=== PATIENT | female | born 1980 | race Caucasian/White ===

== ENCOUNTER 2017-11-18 07:41 | Emergency (ER) | payer OTHER ==
[2017-11-18 08:15] VITALS: BP 107/70
--- NOTE | 2017-11-18 08:29 | UC ---
Ear Complaint HPI - HPI Summary HPI Summary: 37 yo female c/o R ear pain, progressively worse x 3 weeks. Worse at night. Wears ear mufflers at night. No fever. Hurts jaw. - History of Current Complaint Chief Complaint: UCEar Stated Complaint: EAR COMPLAINT Time Seen by Provider: 11/18/17 08:12 Hx Obtained From: Patient Hx Last Menstrual Period: 2009 Pain Intensity: 5 - Allergies/Home Medications Allergies/Adverse Reactions: Allergies Allergy/AdvReac Type Severity Reaction Status Date / Time latex Allergy Unknown Verified 11/18/17 08:04 Reaction Details Home Medications: Home Medications Folic Acid TAB* [Folvite TAB*] 1 mg PO DAILY 11/18/17 [History Confirmed ] Rx Med For Ra 1 tab PO WEEKLY 11/18/17 [History Confirmed 11/18/17] Topiramate TAB(*) [Topamax 100 mg tab] 75 mg PO BEDTIME 11/18/17 [History Confirmed 11/18/17] PMH/Surg Hx/FS Hx/Imm Hx Previously Healthy: Yes - arthritis - Surgical History Surgical History: Yes Surgery Procedure, Year, and Place: 2 c-sections. uterine ablation. 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 [facility] - Family History Known Family History: Positive: Other - positive [facility] for URI - Social History Alcohol Use: Rare Substance Use Type: None Smoking Status (MU): Heavy Every Day Tobacco Smoker Type: Cigarettes Amount Used/How Often: 1/2 pack daily Length of Time of Smoking/Using Tobacco: age 17 yo Household Exposure Type: Cigarettes - Immunization History Most Recent Influenza Vaccination: No Review of Systems Constitutional: Negative Skin: Negative Eyes: Negative ENT: Other - see hpi Respiratory: Negative Cardiovascular: Negative Gastrointestinal: Negative Genitourinary: Negative Motor: Negative Neurovascular: Negative Musculoskeletal: Negative Neurological: Negative Psychological: Negative Is Patient Immunocompromised?: No - but does take mtx All Other Systems Reviewed And Are Negative: Yes Physical Exam Triage Information Reviewed: Yes Appearance: Well-Nourished - looks tired, nad. Vital Signs: Initial Vital Signs Temp 98.8 F 11/18/17 08:10 Pulse 59 11/18/17 08:10 Resp 20 11/18/17 08:10 BP 107/70 11/18/17 08:10 Pulse Ox 100 02/09/18 08:10 Vital Signs Reviewed: Yes Eye Exam: Normal ENT: Positive: Other - R TM red, rtx'd. TM as visible intact. R EAC + red, swollen, mild dry detritus noted. T TM rai, rtx'd. EAC ok. No sign trismus perse, but hurts to open jaw fully Neck exam: Normal Neck: Positive: Supple Respiratory Exam: Normal - no tachypnea, no dysnpea, normal rate Cardiovascular Exam: Normal - normal rate, nondiaphortic Abdominal Exam: Normal - no c/o Musculoskeletal Exam: Normal Neurological Exam: Normal - grossly nonfocal Psychological Exam: Normal - conversing easily and appropriately Ear Complaint Course/Dx - Course Course Of Treatment: Reviewed clinical findings, tx plan, coa with pt. Denies hx addiction, nor household addiction. Rx Tylenol #3. Cipro po and ciprodex. D/w pt need for f/u pcp toward end of abx. questions as posed answered to the best of my ability. - Differential Dx/Diagnosis Provider Diagnoses: Otitis externa Discharge - Discharge Plan Condition: Stable Disposition: HOME Prescriptions: Acetaminop/Codeine 30 MG TAB* [Tylenol/Codeine 30 MG TAB*] 1 - 2 tab PO Q6H PRN #16 tab MDD 8 PRN Reason: Pain Ciproflox/Dexameth OTIC.SUSP* [Ciprodex Otic*] 3 drop .SEE ORDER TID #1 bottle Ciprofloxacin TAB* [Cipro 500 MG TAB*] 500 mg PO BID #20 tab Patient Education Materials: Otitis Externa (ED) Referrals: Gm Lovett MD [Primary Care Provider] - Additional Instructions: follow up with your primary care physician for recheck around the time your antibiotic is complete seek medical attention for worse or new problems in the meantime
== END 2017-11-18 08:42 | disposition home or self-care (01) ==
LOC: UCCORT 07:41
DX: F17.210 Nicotine dependence, cigarettes, uncomplicated (principal)
CPT/HCPCS: 99212; G0463

== ENCOUNTER 2017-12-07 10:18 | Emergency (ER) | payer OTHER ==
[2017-12-07 11:30] VITALS: BP 107/66
--- NOTE | 2017-12-07 11:56 | UC ---
Respiratory Complaint HPI - HPI Summary HPI Summary: cough, congestion, sore throat, chills, achiness for about two days. - History of Current Complaint Chief Complaint: UCRespiratory Stated Complaint: FLY SYMPTOMS Time Seen by Provider: 12/07/17 11:46 Hx Obtained From: Patient Hx Last Menstrual Period: 8yrs ?: No Onset/Duration: Gradual Onset, Lasting Days Timing: Constant Severity Initially: Moderate Severity Currently: Moderate Pain Intensity: 6 Character: Cough: Nonproductive Aggravating Factors: Deep Breaths, Recumbent Position Alleviating Factors: Upright Position, Spontaneous Resolution Associated Signs And Symptoms: Positive: Fever, Chills, URI, Nasal Congestion. Negative: Calf Pain, Calf Swelling - Allergies/Home Medications Allergies/Adverse Reactions: Allergies Allergy/AdvReac Type Severity Reaction Status Date / Time latex Allergy Unknown Verified 12/07/17 11:20 Reaction Details Home Medications: Home Medications Ibuprofen TAB* [Motrin TAB* 600 MG] 600 mg PO Q4H PRN 12/07/17 [History Confirmed 12/07/17] PMH/Surg Hx/FS Hx/Imm Hx Previously Healthy: No - smoker. - Surgical History Surgical History: Yes Surgery Procedure, Year, and Place: 2 c-sections. uterine ablation. 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 [facility] - Family History Known Family History: Positive: Other - positive [facility] for URI - Social History Lives: With Family Alcohol Use: None Substance Use Type: None Smoking Status (MU): Heavy Every Day Tobacco Smoker Type: Cigarettes Amount Used/How Often: 1/2 pack daily Length of Time of Smoking/Using Tobacco: age 17 yo Household Exposure Type: Cigarettes - Immunization History Most Recent Influenza Vaccination: No Review of Systems Constitutional: Fever, Chills ENT: Sore Throat, Sinus Congestion Respiratory: Cough Musculoskeletal: Myalgia All Other Systems Reviewed And Are Negative: Yes Physical Exam Triage Information Reviewed: Yes Appearance: Well-Appearing, No Pain Distress, Well-Nourished Vital Signs: Initial Vital Signs Temp 100.1 F 12/07/17 11:22 Pulse 86 12/07/17 11:22 Resp 20 12/07/17 11:22 BP 107/66 12/07/17 11:22 Pulse Ox 99 12/07/17 11:22 Vital Signs Reviewed: Yes Eye Exam: Normal Eyes: Positive: Conjunctiva Clear ENT: Positive: Pharyngeal erythema, Nasal congestion, TMs normal, Uvula midline. Negative: Nasal drainage, Tonsillar swelling, Tonsillar exudate, Trismus, Muffled voice, Hoarse voice, Dental tenderness, Sinus tenderness Neck: Positive: Supple, Nontender, No Lymphadenopathy. Negative: Nuchal Rigidity Respiratory: Positive: Lungs clear, Normal breath sounds, No respiratory distress, No accessory muscle use. Negative: Respiratory distress, Decreased breath sounds, Accessory muscle use, Crackles, Rhonchi, Stridor, Wheezing, Expiration Cardiovascular: Positive: No Murmur, Pulses Normal, Brisk Capillary Refill Abdomen Description: Positive: No Organomegaly, Soft. Negative: Distended, Guarding Musculoskeletal: Positive: Strength Intact, ROM Intact, No Edema Neurological: Positive: Alert, Muscle Tone Normal. Negative: Fatigued Psychological: Positive: Age Appropriate Behavior, Abnormal Response To Family Skin: Negative: rashes UC Diagnostic Evaluation - Laboratory O2 Sat by Pulse Oximetry: 99 Respiratory Course/Dx - Differential Dx/Diagnosis Provider Diagnoses: influenza Discharge - Discharge Plan Condition: Good Disposition: HOME Prescriptions: Oseltamivir CAP* [Tamiflu CAP*] 75 mg PO BID #10 cap Patient Education Materials: Influenza (ED) Forms: *Work Release Referrals: Gm Lovett MD [Primary Care Provider] -
== END 2017-12-07 11:56 | disposition home or self-care (01) ==
LOC: UCCORT 10:18
DX: J11.1 Influenza due to unidentified influenza virus with other respiratory manifestations (principal); F17.210 Nicotine dependence, cigarettes, uncomplicated
CPT/HCPCS: 99212; G0463

== ENCOUNTER 2018-07-31 08:33 | Emergency (ER) | payer OTHER ==
[2018-07-31 08:43] VITALS: BP 107/72
--- NOTE | 2018-07-31 08:54 | UC ---
Abdominal Pain Female HPI - HPI Summary HPI Summary: This patient is a 38 year old F presenting to [facility] with a chief complaint of ABD pain that began 3 days ago. At that time she states she at pizza and 15 minutes later she had n/v accompanied by a 10/10 pain. The patient rates the pain 4/10 in severity currently, describes it as achy, and located around her right ribs. Symptoms aggravated by eating. Patient reports right upper back pain. Patient denies hematuria and dysuria. Ablation 8 years ago and has not had a period since. She has not had a BM in the last 4 days. Along with this she reports having 30-40 lbs of unintended weight loss in the past few months. - History of Current Complaint Chief Complaint: UCAbdominalPain Stated Complaint: ABDOMINAL COMPLAINT Hx Obtained From: Patient Hx Last Menstrual Period: 8yrs Onset/Duration: Lasting Days, Still Present Timing: Constant Severity Initially: Severe Severity Currently: Moderate Pain Intensity: 4 Pain Scale Used: 0-10 Numeric Location: Discrete At: RUQ, Discrete At: RLQ Radiates: Yes Radiates to: Back Character: Sharp Aggravating Factor(s): Food Associated Signs and Symptoms: Positive: Nausea, Vomiting. Negative: Fever Allergies/Adverse Reactions: Allergies Allergy/AdvReac Type Severity Reaction Status Date / Time latex Allergy Unknown Verified 07/31/18 08:44 Reaction Details Home Medications: Home Medications Acetaminophen 325 mg PO Q6HR 07/31/18 [History Confirmed 07/31/18] PMH/Surg Hx/FS Hx/Imm Hx - Surgical History Surgical History: Yes Surgery Procedure, Year, and Place: 2 c-sections. uterine ablation. 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 [facility] - Family History Known Family History: Positive: Other - positive [facility] for URI - Social History Alcohol Use: None Substance Use Type: None Smoking Status (MU): Heavy Every Day Tobacco Smoker Type: Cigarettes Amount Used/How Often: 1/2 pack daily Length of Time of Smoking/Using Tobacco: age 17 yo Household Exposure Type: Cigarettes - Immunization History Most Recent Influenza Vaccination: No Review of Systems Constitutional: Negative - fever Gastrointestinal: Abdominal Pain, Vomiting, Nausea, Other - constipation Genitourinary: Negative All Other Systems Reviewed And Are Negative: Yes Physical Exam - Summary Physical Exam Summary: VITAL SIGNS: Reviewed. GENERAL: Patient is a well-developed and nourished female who is lying comfortable in the stretcher. Patient is not in any acute respiratory distress. HEAD AND FACE: Normocephalic EYES: PERRLA, EOMI x 2. EARS: Hearing grossly intact. MOUTH: Oropharynx within normal limits. NECK: Supple, trachea is midline, no adenopathy, no JVD, no carotid bruit. CHEST: Symmetric, no tenderness at palpation LUNGS: Clear to auscultation bilaterally. No wheezing or crackles. CVS: Regular rate and rhythm, S1 and S2 present, no murmurs or gallops appreciated. ABDOMEN: Soft, TTP in the RUQ, no rebound. Bowel sounds are normal. No abdominal abnormal pulsations. EXTREMITIES: Full ROM in all major joints, no edema, no cyanosis or clubbing. NEURO: Alert and oriented x 3. No acute neurological deficits. Speech is normal and follows commands. SKIN: Dry and warm Triage Information Reviewed: Yes Vital Signs: Initial Vital Signs Temp 97.5 F 07/31/18 08:37 Pulse 64 07/31/18 08:37 Resp 18 07/31/18 08:37 BP 107/72 07/31/18 08:37 Pulse Ox 100 07/31/18 08:37 Vital Signs Reviewed: Yes Diagnostics - Radiology ABD US Radiology Interpretation Completed By: Radiologist - Sludge within the gallbladder. Prominent right renal pelvis. No biliary duct dilatation is noted. Dr. Knowles has reviewed this report. Abd Pain Female Course/Dx - Course Course Of Treatment: Patient is a 38-year-old female who presents to the urgent care with a chief complaint of having right upper quadrant pain and approximately 50 pounds in weight loss in the last 6 months. Patient reports that she is I will treat. If she eats she has the abdominal pain. Right upper quadrant ultrasound impression: Sludge in gallbladder. No biliary ductal dilation is noted. X-ray of the abdomen impression: No fever or obstruction noted. Since there is no significant abnormal findings I decided to send the patient to the emergency department for further workup and management. The patient declined ambulance transfer. Patient is hemodynamically stable alert and oriented 3. - Differential Dx/Diagnosis Provider Diagnoses: Abdominal pain. Weight loss Discharge - Sign-Out/Discharge Documenting (check all that apply): Patient Departure All imaging exams completed and their final reports reviewed: Yes - Discharge Plan Condition: Stable Disposition: HOME-RECOMMEND TO ED Patient Education Materials: Abdominal Pain (ED) Referrals: Gm Lovett MD [Primary Care Provider] - Additional Instructions: Patient is discharged to the emergency department for further workup and management. Patient declined ambulance transfer. - Billing Disposition and Condition Condition: STABLE Disposition: Home-Recommend to ED - Attestation Statements Document Initiated by Scribe: Yes Documenting Scribe: Elier Chavez Provider For Whom Scribe is Documenting (Include Credential): José Manuel Knowles MD Scribe Attestation: Elier Chavez , scribed for José Manuel Knowles MD on 07/31/18 at 1315. Scribe Documentation Reviewed: Yes Provider Attestation: The documentation as recorded by the Elier cadet accurately reflects the service I personally performed and the decisions made by José Manuel dorsey MD
--- NOTE | 2018-07-31 09:18 | RAD ---
Indication: Abdominal pain. Flat and upright views of the abdomen demonstrates no free air. Stool is present throughout the colon. No dilated loops of bowel are noted. Tubal ligation clips are noted. IMPRESSION: No free air or obstruction is noted.
--- NOTE | 2018-07-31 09:51 | RAD ---
Indication: Right upper quadrant pain. Real-time sonography of the right upper quadrant was performed. The liver measures 17 cm in length. No focal lesions or intrahepatic duct dilatation is noted. Sludge is noted in the gallbladder. Common duct measures 2 mm. The right kidney measures 11.2 x 3.8 x 4.3 cm. There is a prominent right renal pelvis. The pancreas head, neck and proximal body demonstrates no mass or pancreatic duct dilatation. Aorta and inferior vena cava are unremarkable. IMPRESSION: Sludge within the gallbladder. Prominent right renal pelvis. No biliary duct dilatation is noted.
== END 2018-07-31 09:46 | disposition home health service (06) ==
LOC: UCEAST 08:33
DX: R10.11 Right upper quadrant pain (principal); R63.4 Abnormal weight loss; R11.2 Nausea with vomiting, unspecified; F17.210 Nicotine dependence, cigarettes, uncomplicated; K59.00 Constipation, unspecified; Z91.040 Latex allergy status
CPT/HCPCS: 74019; 76705; 81003; 99212; G0463

== ENCOUNTER 2018-07-31 10:07 | Emergency (ER) | payer OTHER ==
[2018-07-31 10:39] LABS: ABS Basophils 0.1 10^3/ul (0-0.2); ABS Eosinophils 0.1 10^3/ul (0-0.6); ABS Lymphocytes 1.8 10^3/ul (1.0-4.8); ABS Monocytes 0.5 10^3/ul (0-0.8); ABS Neutrophils 4.8 10^3/ul (1.5-7.7); ABS Nucleated RBC 0 10^3/ul; Eosinophil % 1.3 % (0-6); Hematocrit 44 % (35-47); Hemoglobin 15.3 g/dl (12.0-16.0); Mean Corpuscular HGB Conc 35 g/dl (31-36); Mean Corpuscular Hemoglobin 33 pg (27-31); Mean Corpuscular Volume 95 fL (80-97); Mean Platelet Volume 9.1 um3 (7.4-10.4); Nucleated Red Blood Cells % 0.1; Platelet Count 246 10^3/ul (150-450); Red Blood Count 4.65 10^6/ul (4.00-5.40); Red Cell Distribution Width 13 % (10.5-15); White Blood Count 7.4 10^3/ul (3.5-10.8)
[2018-07-31 11:00] LABS: EGFR Non-African American 101.3 (>60)
[2018-07-31] MEDS ORDERED: Acetaminophen TAB* 325 MG PO ONE (11:31)
[2018-07-31] MEDS ORDERED: Famotidine TAB* 20 MG PO ONE (11:31)
[2018-07-31 11:39] LABS: Urine Appearance Clear; Urine Blood Negative (Negative); Urine Color Straw; Urine Ketones Negative (Negative); Urine Protein Negative (Negative); Urine Specific Gravity 1.004 (1.010-1.030); Urine Urobilinogen Negative (Negative)
--- NOTE | 2018-07-31 12:10 | ED ---
Abdominal Pain/Female - HPI Summary HPI Summary: Pt is a 38 y/o female who presents to the ED c/o RUQ pain. She was sent here from the where she had an US and XR. Pt states shes been having the pain for a few months, but 3 days ago was made worse after eating pizza. She also c/ o chills, N/V, and constipation. Pt denies any dark BMs or urinary symptoms, but is unsure if shes had a fever because shes been taking Ibuprofen and Tylenol. The pain is described as dull and achy. She no longer has menstrual periods. - History of Current Complaint Chief Complaint: EDAbdPain Stated Complaint: ABD PAIN Time Seen by Provider: 07/31/18 11:20 Hx Obtained From: Patient Hx Last Menstrual Period: 8yrs Onset/Duration: Gradual Onset, Lasting Weeks - 2 months, Still Present Timing: Constant Severity Currently: Severe Pain Intensity: 10 Pain Scale Used: 0-10 Numeric Location: Discrete At: RUQ Radiates: No Character: Dull, Other: - Achy Aggravating Factor(s): Food Associated Signs and Symptoms: Positive: Constipation, Nausea, Vomiting. Negative: Fever, Blood in Stool, Urinary Symptoms Allergies/Adverse Reactions: Allergies Allergy/AdvReac Type Severity Reaction Status Date / Time latex Allergy Unknown Verified 07/31/18 08:44 Reaction Details PMH/Surg Hx/FS Hx/Imm Hx Endocrine/Hematology History: Denies: Hx Diabetes, Hx Thyroid Disease Cardiovascular History: Denies: Hx Hypertension, Hx Pacemaker/ICD Respiratory History: Denies: Hx Asthma, Hx Chronic Obstructive Pulmonary Disease (COPD) GI History: Denies: Hx Ulcer History: Denies: Hx Renal Disease Sensory History: Denies: Hx Hearing Aid Psychiatric History: Denies: Hx Panic Disorder - Surgical History Surgery Procedure, Year, and Place: 2 c-sections. uterine ablation. 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 [facility] - Immunization History Immunizations Up to Date: Yes Infectious Disease History: No Infectious Disease History: Denies: Hx Clostridium Difficile, Hx Hepatitis, Hx Human Immunodeficiency Virus (HIV), Hx of Known/Suspected MRSA, Hx Shingles, Hx Tuberculosis, Traveled Outside the [place] in Last 30 Days - Family History Known Family History: Positive: Other - positive [facility] for URI - Social History Alcohol Use: None Hx Substance Use: No Substance Use Type: Reports: None Hx Tobacco Use: Yes Smoking Status (MU): Heavy Every Day Tobacco Smoker Type: Cigarettes Amount Used/How Often: 1/2 pack daily Length of Time of Smoking/Using Tobacco: age 17 yo Review of Systems Positive: Chills. Negative: Fever Positive: Abdominal Pain, Vomiting, Nausea, Other - Constipation, NEGATIVE: dark stool Genitourinary: Negative All Other Systems Reviewed And Are Negative: Yes Physical Exam - Summary Physical Exam Summary: Appearance: Well appearing, no pain distress Skin: warm, dry, reflects adequate perfusion Head/face: normal Eyes: EOMI, NICKOLAS ENT: mucous membranes moist Neck: supple, non-tender Respiratory: CTA, breath sounds present Cardiovascular: RRR, pulses symmetrical Abdomen: soft, mild-moderate RUQ tenderness, no RLQ tenderness, no rebound or guarding, negative Venetie sign Bowel Sounds: present Musculoskeletal: normal, strength/ROM intact Neuro: normal, sensory motor intact, A&Ox3 Triage Information Reviewed: Yes Vital Signs On Initial Exam: Initial Vitals Temp Pulse Resp BP Pulse Ox 97.4 F 70 16 126/71 100 07/31/18 10:10 07/31/18 10:10 07/31/18 10:10 07/31/18 10:10 07/31/18 10:10 Vital Signs Reviewed: Yes Diagnostics - Vital Signs Vital Signs Temp Pulse Resp BP Pulse Ox 07/31/18 11:26 60 18 118/70 100 07/31/18 11:24 64 100 07/31/18 10:10 97.4 F 70 16 126/71 100 - Laboratory Lab Results: Lab Results 07/31/18 07/31/18 07/31/18 Range/Units 10:30 10:30 10:30 WBC 7.4 (3.5-10.8) 10^3/ul RBC 4.65 (4.00-5.40) 10^6/ul Hgb 15.3 (12.0-16.0) g/dl Hct 44 (35-47) % MCV 95 (80-97) fL MCH 33 H (27-31) pg MCHC 35 (31-36) g/dl RDW 13 (10.5-15) % Plt Count 246 (150-450) 10^3/ul MPV 9.1 (7.4-10.4) um3 Neut % (Auto) 65.7 (38-83) % Lymph % (Auto) 25.0 (25-47) % Graham % (Auto) 7.2 H (0-7) % Eos % (Auto) 1.3 (0-6) % Baso % (Auto) 0.8 (0-2) % Absolute Neuts (auto) 4.8 (1.5-7.7) 10^3/ul Absolute Lymphs (auto) 1.8 (1.0-4.8) 10^3/ul Absolute Monos (auto) 0.5 (0-0.8) 10^3/ul Absolute Eos (auto) 0.1 (0-0.6) 10^3/ul Absolute Basos (auto) 0.1 (0-0.2) 10^3/ul Absolute Nucleated RBC 0 10^3/ul Nucleated RBC % 0.1 Sodium 140 (135-145) mmol/L Potassium 4.5 (3.5-5.0) mmol/L Chloride 106 (101-111) mmol/L Carbon Dioxide 28 (22-32) mmol/L Anion Gap 6 (2-11) mmol/L BUN 11 (6-24) mg/dL Creatinine 0.66 (0.51-0.95) mg/dL Est GFR ( Amer) 122.6 (>60) Est GFR (Non-Af Amer) 101.3 (>60) BUN/Creatinine Ratio 16.7 (8-20) Glucose 96 (70-100) mg/dL Lactic Acid 0.9 (0.5-2.0) mmol/L Calcium 9.4 (8.6-10.3) mg/dL Total Bilirubin 0.30 (0.2-1.0) mg/dL AST 12 L (13-39) U/L ALT 8 (7-52) U/L Alkaline Phosphatase 64 (34-104) U/L C-Reactive Protein < 1.00 (<8.01) mg/L Total Protein 6.6 (6.4-8.9) g/dL Albumin 4.5 (3.2-5.2) g/dL Globulin 2.1 (2-4) g/dL Albumin/Globulin Ratio 2.1 (1-3) Lipase 17 (11.0-82.0) U/L Beta HCG, Quant < 0.60 mIU/mL Urine Color Urine Appearance Urine pH (5-9) Ur Specific [place] (1.010-1.030) Urine Protein (Negative) Urine Ketones (Negative) Urine Blood (Negative) Urine Nitrate (Negative) Urine Bilirubin (Negative) Urine Urobilinogen (Negative) Ur Leukocyte Esterase (Negative) Urine Glucose (Negative) 07/31/18 Range/Units 11:28 WBC (3.5-10.8) 10^3/ul RBC (4.00-5.40) 10^6/ul Hgb (12.0-16.0) g/dl Hct (35-47) % MCV (80-97) fL MCH (27-31) pg MCHC (31-36) g/dl RDW (10.5-15) % Plt Count (150-450) 10^3/ul MPV (7.4-10.4) um3 Neut % (Auto) (38-83) % Lymph % (Auto) (25-47) % Graham % (Auto) (0-7) % Eos % (Auto) (0-6) % Baso % (Auto) (0-2) % Absolute Neuts (auto) (1.5-7.7) 10^3/ul Absolute Lymphs (auto) (1.0-4.8) 10^3/ul Absolute Monos (auto) (0-0.8) 10^3/ul Absolute Eos (auto) (0-0.6) 10^3/ul Absolute Basos (auto) (0-0.2) 10^3/ul Absolute Nucleated RBC 10^3/ul Nucleated RBC % Sodium (135-145) mmol/L Potassium (3.5-5.0) mmol/L Chloride (101-111) mmol/L Carbon Dioxide (22-32) mmol/L Anion Gap (2-11) mmol/L BUN (6-24) mg/dL Creatinine (0.51-0.95) mg/dL Est GFR ( Amer) (>60) Est GFR (Non-Af Amer) (>60) BUN/Creatinine Ratio (8-20) Glucose (70-100) mg/dL Lactic Acid (0.5-2.0) mmol/L Calcium (8.6-10.3) mg/dL Total Bilirubin (0.2-1.0) mg/dL AST (13-39) U/L ALT (7-52) U/L Alkaline Phosphatase (34-104) U/L C-Reactive Protein (<8.01) mg/L Total Protein (6.4-8.9) g/dL Albumin (3.2-5.2) g/dL Globulin (2-4) g/dL Albumin/Globulin Ratio (1-3) Lipase (11.0-82.0) U/L Beta HCG, Quant mIU/mL Urine Color Straw Urine Appearance Clear Urine pH 5.0 (5-9) Ur Specific [place] 1.004 L (1.010-1.030) Urine Protein Negative (Negative) Urine Ketones Negative (Negative) Urine Blood Negative (Negative) Urine Nitrate Negative (Negative) Urine Bilirubin Negative (Negative) Urine Urobilinogen Negative (Negative) Ur Leukocyte Esterase Negative (Negative) Urine Glucose Negative (Negative) Result Diagrams: 07/31/18 10:30 07/31/18 10:30 Lab Statement: Any lab studies that have been ordered have been reviewed, and results considered in the medical decision making process. Abdominal Pain Fem Course/Dx - Course Course Of Treatment: Patient was sludge in the gallbladder but otherwise normal ultrasound. LFTs are nonelevated. She has minimal discomfort in that area at present. Treated here with some relief or GI meds. Had been taking a lot of ibuprofen. Discussed with her family medicine office who will see her and schedule her for HIDA scan. - Diagnoses Differential Diagnosis: Positive: Gall Bladder Disease, Irritable Bowel Syndrome , Other - Gastritis Provider Diagnoses: RUQ abdominal pain - Provider Notifications Discussed Care Of Patient With: Gm Lovett Time Discussed With Above Provider: 11:55 Instructed by Provider To: Other - Have pt call as needed. Discharge - Sign-Out/Discharge Documenting (check all that apply): Patient Departure - Discharge - Discharge Plan Condition: Improved Disposition: HOME Prescriptions: Famotidine TAB* [Pepcid 20 MG TAB*] 20 mg PO BID #30 tab Sucralfate [Carafate] 1 gm PO Q6H #40 tablet Patient Education Materials: Acute Abdominal Pain (ED) Forms: *Work Release Referrals: Gm Lovett MD [Primary Care Provider] - Additional Instructions: Try to cut back on ibuprofen, this may be making her belly more tender. Tylenol as needed. Low-fat/no fat diet until HIDA scan performed. Follow up with primary care physician as soon as possible call on leaving the ER. We have discussed with them of ordering a HIDA scan. Return with fever, increased pain, worse, new symptoms or other concerns. - Billing Disposition and Condition Condition: IMPROVED Disposition: Home - Attestation Statements Document Initiated by Henrique: Yes Documenting Scribe: Monica Logan Provider For Whom Henrique is Documenting (Include Credential): Alvaro Mosley MD Scribe Attestation: Monica Chavez, scribed for Alvaro Mosley MD on 07/31/18 at 1529. Scribe Documentation Reviewed: Yes Provider Attestation: The documentation as recorded by the Monica cadet accurately reflects the service I personally performed and the decisions made by me, Alvaro Mosley MD
[2018-07-31 12:28] VITALS: BP 117/65
== END 2018-07-31 12:27 | disposition home or self-care (01) ==
LOC: ED 10:07
DX: R10.11 Right upper quadrant pain (principal); K59.00 Constipation, unspecified; R11.2 Nausea with vomiting, unspecified; F17.210 Nicotine dependence, cigarettes, uncomplicated
CPT/HCPCS: 36415; 80053; 81003; 83605; 83690; 84702; 85025; 86140; 99282; A9270-GY

== ENCOUNTER 2018-12-08 17:54 | Emergency (ER) | payer BC, OTHER ==
[2018-12-08 18:08] VITALS: BP 131/82
--- NOTE | 2018-12-08 18:30 | UC ---
Back Pain HPI - HPI Summary HPI Summary: 38-year-old woman comes in with a chief complaint of thoracic back pain and bilateral shoulder pain that started at work while lifting on December 05, 2018. Pain primarily is in the upper back and also the right shoulder. It's worse with lifting twisting turning bending. Also hurts when she turns her neck. States the muscles feel tight. Yesterday at work but very 2018 the pain got worse while lifting. No weakness or numbness. No shortness of breath. - History of Current Complaint Chief Complaint: UCUpperExtremity Stated Complaint: BACK INJURY Time Seen by Provider: 12/08/18 18:13 Hx Last Menstrual Period: ABLATION Pain Intensity: 6 - Allergies/Home Medications Allergies/Adverse Reactions: Allergies Allergy/AdvReac Type Severity Reaction Status Date / Time latex Allergy Unknown Verified 12/08/18 18:09 Reaction Details Home Medications: Home Medications Acetaminophen [Extra Strength Non-Aspirin] 1,000 mg PO PRN 12/08/18 [History] Ibuprofen TAB* [Advil TAB*] 600 mg PO PRN 12/08/18 [History] Naproxen Sodium [Aleve] 2 tab PO PRN 12/08/18 [History] PMH/Surg Hx/FS Hx/Imm Hx Previously Healthy: Yes GI/ History: Gastroesophageal Reflux - Surgical History Surgical History: Yes Surgery Procedure, Year, and Place: 2 c-sections. uterine ablation. 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 LASIK EYE. 09/07/18- [facility] - Family History Known Family History: Positive: Other - positive [facility] for URI - Social History Alcohol Use: None Substance Use Type: None Smoking Status (MU): Current Every Day Smoker Type: Cigarettes Amount Used/How Often: 1/2 pack daily Length of Time of Smoking/Using Tobacco: age 17 yo Household Exposure Type: Cigarettes - Immunization History Most Recent Influenza Vaccination: No Review of Systems All Other Systems Reviewed And Are Negative: Yes Constitutional: Positive: Negative Skin: Positive: Negative Eyes: Positive: Negative ENT: Positive: Negative Respiratory: Positive: Negative Cardiovascular: Positive: Chest Pain Gastrointestinal: Positive: Negative Motor: Positive: Decreased ROM - SHOULDERS AND NECK SECONDARY TO PAIN Neurovascular: Positive: Negative Musculoskeletal: Positive: Other: - SEE HPI Neurological: Positive: Negative Psychological: Positive: Negative Is Patient Immunocompromised?: No Physical Exam Triage Information Reviewed: Yes Appearance: Well-Appearing, Well-Nourished, Pain Distress - MILD WITH ROM Vital Signs: Initial Vital Signs Temp 98.3 F 12/08/18 18:03 Pulse 74 12/08/18 18:03 Resp 16 12/08/18 18:03 BP 131/82 12/08/18 18:03 Pulse Ox 100 12/08/18 18:03 Vital Signs Reviewed: Yes Eye Exam: Normal Eyes: Positive: Conjunctiva Clear Neck: Positive: Other: - DECREASED ROM SECONDARY TO PAIN. TENDER RT LATERAL NECK Respiratory: Positive: Lungs clear, Normal breath sounds, No respiratory distress, Other: - TENDER TO PALPATION B/L UPPER THORACIC BACK. MUSCLES ARE TIGHT. Cardiovascular: Positive: RRR Musculoskeletal: Positive: Other: - The muscles of the upper back are tender to palpation and her tight on examination. Range of motion of the shoulders is limited secondary to pain. The shoulder joints themselves are not tender to palpation. No sensation deficit strength is 5 out of 5. Range of motion of the neck is also decreased secondary to pain. Neurological Exam: Normal Neurological: Positive: Alert, Muscle Tone Normal Psychological Exam: Normal Psychological: Positive: Normal Response To Family, Age Appropriate Behavior Skin Exam: Normal Back Pain Course/Dx - Course Course Of Treatment: Patient will continue the nonsteroidal anti- inflammatories. I also wrote a prescription for Flexeril and hydrocodone. The plan is to use Flexeril if that helps sufficiently we'll stop at that level. Otherwise she can take and hydrocodone if needed. She has taken hydrocodone in the past and tolerated it well. Plan is to have her follow up with occupational medicine and also referred to physical therapy. Reevaluate sooner if worse or any questions or concerns. - Differential Dx/Diagnosis Provider Diagnosis: Acute thoracic back pain, Shoulder pain, bilateral Discharge - Sign-Out/Discharge Documenting (check all that apply): Patient Departure All imaging exams completed and their final reports reviewed: No Studies - Discharge Plan Condition: Stable Disposition: HOME Prescriptions: Cyclobenzaprine TAB* [Flexeril 10 MG TAB*] 10 mg PO TID PRN #15 tab MDD 3 PRN Reason: Pain HYDROcodone/ACETAMIN 5-325 MG* [[place] 5-325 TAB*] 1 tab PO Q4H PRN #20 tab MDD 6 PRN Reason: Pain Patient Education Materials: Shoulder Sprain (ED), Thoracic Back Strain (ED) Forms: *Work Release Referrals: Gm Lovett MD [Primary Care Provider] - Clinton Guerrero MD [Medical Doctor] - Additional Instructions: FOLLOW UP WITH OCCUPATIONAL MEDICINE, DR GUERRERO, PHYSICAL THERAPY AND YOUR DOCTOR. GET RECHECKED FOR ANY WORSENING OF YOUR CONDITION; WEAKNESS, NUMBNESS, PAIN, SHORTNESS OF BREATH, YOU FEEL ILL OR QUESTIONS OR CONCERNS. - Billing Disposition and Condition Condition: STABLE Disposition: Home
== END 2018-12-08 18:35 | disposition home or self-care (01) ==
LOC: UCEAST 17:54
DX: M54.6 Pain in thoracic spine (principal); M25.511 Pain in right shoulder; M25.512 Pain in left shoulder; F17.210 Nicotine dependence, cigarettes, uncomplicated; Z91.040 Latex allergy status
CPT/HCPCS: 99212; G0463

== ENCOUNTER 2019-02-24 18:29 | Emergency (ER) | payer BC, OTHER ==
--- OUTSIDE RECORDS SUMMARY | 2019-02-24 18:33 | XMS REPORT | Continuity of Care Document ---
:1980 External Reference #:[id number] Author Name Marlen Elliott Care Team Providers Name Role Phone Gm Lovett MD Primary Care Physician Unavailable Payers Date Identification Numbers Payment Provider Subscriber Expires: 2016 Policy Number: [id number] Blue [facility] Irene Colmenares PayID: [id number] [address] [address] [place] [address] Policy Number: [id number] [facility] [id number] [address] [address] [place] [address] Effective: 2018 Policy Number: [id number] [place] Irene Colmenares Onset: 2018 Group Number: fax [phone] [address] [address] PayID: [id number] [place] [address] Advance Directives Description No Information Available Problems Active Problems Provider Date Alopecia Ryann Avendano MD Onset: 04/05/2018 Medication overuse headache Ryann Avendano MD Onset: 12/13/2016 Chronic intractable migraine without aura Ryann Avendano MD Onset: 12/13/2016 Family History Date Family Member(s) Observation Comments General Cancer General Rheumatoid Arthritis Mother Migraine First Daughter Migraine Social History Type Date Description Comments Sex Unknown Lives With Spouse Occupation Currently Working ETOH Use Denies alcohol use Tobacco Use Start: Unknown Patient is a current smoker, smokes every day Smoking Status Reviewed: 02/13/19 Patient is a current smoker, smokes every day Exercise Type/Frequency Does not exercise Allergies, Adverse Reactions, Alerts Active Allergies Reaction Severity Comments Date NKDA 12/13/2016 Latex 02/13/2019 Medications Active Medications SIG Qnty Indications Ordering Provider Date Aimovig inject once a 1ml G43.719 Stan Sandhu, 11/10/2018 70mg/ml month, sq GRP# M.D. Solution Auto-Inject [id number] PCN# CN Id# [id number] [facility]# [id number] Diclofenac Sodium 1 as needed for 30tabs G43.719 Ryann Avendano MD 2017 50mg migraine. avoid Tablets DR using more than 2x/week Metoclopramide HCL 1 tablet as needed 30tabs G43.719 Ryann Avendano MD 01/10 5mg for Tablets migraine/nausea up to three times per day. Folic Acid 1 tab a day Unknown 1mg Tablets Arava 1 by mouth every Unknown 10mg Tablets day Linzess 1 by mouth every Unknown 145mcg Capsules day Ibuprofen 200 400-600mg every 6 Unknown 200mg hours as needed Tablets for pain. Tylenol 8 Hour 1 by mouth twice a Unknown 650mg day Tablets ER History Medications Naratriptan HCL 1 twice a day as 12tabs G43.719 Ryann Avendano MD 2017 - 2.5mg needed for 11/09/2018 Tablets headache max 2 days a week Medrol Take as directed 21units G43.719 Ryann Avendano MD 12/13/2016 - 4mg TBPK 04/11/2017 Topiramate take 1 tabs by 60tabs G43.719 Ryann Aevndano MD 12/13/2016 - 25mg mouth every 11/09/2008 Tablets night.. Duloxetine HCL 1 po qd Unknown - 60mg 01/09/[address] Sanchez Alprazolam take 1 tablet by Unknown - 0.25mg mouth three 01/09/2018 Tablets times a day maximum daily dose of 3 Nexium 24HR 1 by mouth daily Unknown - 20mg 11/09/[address] Methotrexate 10mg weekly Unknown - 2.5mg 11/09/2018 Tablets Immunizations Description No Information Available Vital Signs Date Vital Result Comment 02/13/2019 8:45am Height 62.5 inches 5'2.50" Weight 112.00 lb BP Systolic 128 mmHg BP Diastolic 66 mmHg Respiratory Rate 18 /min Body Temperature 97.4 F Pain Level 4 BMI (Body Mass Index) 20.2 kg/m2 11/10/2018 8:12am Height 62.5 inches 5'2.50" Weight 112.00 lb Heart Rate 84 /min BP Systolic Sitting 102 mmHg BP Diastolic Sitting 70 mmHg BMI (Body Mass Index) 20.2 kg/m2 04/05/2018 10:18am Height 62.5 inches 5'2.50" Weight 113.38 lb Heart Rate 68 /min BP Systolic 102 mmHg BP Diastolic 72 mmHg BMI (Body Mass Index) 20.4 kg/m2 01/10/2018 3:57pm Height 62.5 inches 5'2.50" Weight 123.00 lb Heart Rate 62 /min BP Systolic 98 mmHg BP Diastolic 58 mmHg BMI (Body Mass Index) 22.1 kg/m2 04/11/2017 3:56pm Height 62.5 inches 5'2.50" Weight 153.00 lb Heart Rate 66 /min BP Systolic Sitting 110 mmHg BP Diastolic Sitting 70 mmHg Respiratory Rate 14 /min BMI (Body Mass Index) 27.5 kg/m2 12/13/2016 12:57pm Height 62.5 inches 5'2.50" Weight 150.00 lb Heart Rate 67 /min BP Systolic Sitting 122 mmHg BP Diastolic Sitting 76 mmHg Respiratory Rate 17 /min BMI (Body Mass Index) 27.0 kg/m2 Results Description No Information Available Procedures Date Code Description Status 02/13/2019 90473 Inject/Drain Joint/Bursa Major W/O US Completed Encounters Type Date Location Provider Dx Diagnosis Office Visit 12/26/2018 [facility] Clinton Calin, S13.4xxD Sprain of 3:31p Health ligaments of cervical spine, subsequent encounter M75.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 w/o aura, intractable, w/o stat migr Office 04/05/2018 [facility] Ryann Avendano MD G43.719 Chronic migraine Visit 10:30a Clinic w/o aura, intractable, w/o stat migr L65.9 Nonscarring hair loss, unspecified Office Visit 01/10/2018 [facility] Ryann G43.719 Chronic migraine 3:30p Amelia Avendano MD w/o aura, intractable, w/o stat migr L65.9 Nonscarring hair loss, unspecified Office Visit 04/11/2017 4:00p [place] [facility] Ryanncortez Avendano G43.719 Chronic migraine [facility] w/o aura, intractable, w/o stat migr Office Visit 12/13/2016 1:00p [place] [facility] Ryann Aevndano G43.719 Chronic migraine [facility] w/o aura, intractable, w/o stat migr G44.40 Drug-induced headache, NEC, not intractable Plan of Treatment Future Appointment(s):03/27/2019 8:45 am - [facility] am - Stan Sandhu M.D. at [place] [facility]02/13/2019 - Adelfo Gallagher, MDM25.511 Pain in right vlhxezogB71.101A Unspecified injury of muscle, fascia and tendon of long headNew Therapy:Physical TherapyFollow up:Follow up: 6-8 mjisjC43.41 Impingement syndrome of right jwwxsolcK66.211 Secondary osteoarthritis, right shoulder
--- OUTSIDE RECORDS SUMMARY | 2019-02-24 18:33 | XMS REPORT | Continuity of Care Document ---
:1980 External Reference #:[id number] Author Name Marlen Elliott Care Team Providers Name Role Phone Gm Lovett MD Primary Care Physician Unavailable Payers Date Identification Numbers Payment Provider Subscriber Expires: 2016 Policy Number: [id number] Blue [facility] P[facility] Irene Colmenares PayID: [id number] [address] [address] [place] [address] Policy Number: [id number] [facility] PayID: [id number] [address] [address] [place] [address] Effective: 2018 Policy Number: [id number] [place] Irene Colmenares Onset: 2018 Group Number: fax [phone] [address] [address] PayID: [id number] [place] [address] Advance Directives Description No Information Available Problems [...] 70mg/ml month, sq GRP# M.D. Solution Auto-Inject [id number] PCN# CN Id# [id number] [facility]# [id number] Diclofenac Sodium 1 as needed for 30tabs [...] take 1 tabs by 60tabs G43.719 Ryann Avendano MD 12/13/2016 - 25mg mouth every 11/09/2008 [...] Available Procedures Date Code Description Status 02/13/2019 17197 Inject/Drain Joint/Bursa Major W/O US Completed Encounters Type Date Location Provider Dx Diagnosis Office Visit 02/13/2019 Orthopedic Adelfo Gallagher MD M25.511 Pain in right 9:00a [facility] S46.101A Unsp injury of musc/fasc/tend long hd bicep, right arm, init M75.41 Impingement syndrome of right shoulder M19.211 Secondary osteoarthritis, right shoulder Office Visit 12/26/2018 [facility] S13.4xxD Sprain of 3:31p [facility] MD Calin ligaments of cervical spine, subsequent encounter M75.31 Calcific tendinitis of right shoulder M54.12 Radiculopathy, cervical region Z04.2 Encounter for exam and observation following work accident [facility] Visit 8:00a [facility] Sandhu M.D. w/o aura, intractable, w/o stat migr Office 04/05/2018 [facility] Ryann Avendano MD G43.719 Chronic migraine Visit 10:30a Clinic w/o aura, intractable, w/o stat migr L65.9 Nonscarring hair loss, unspecified Office Visit 01/10/2018 [facility] Ryann G43.719 Chronic migraine 3:30p Clinic MD Juan Alberto w/o aura, intractable, w/o stat migr L65.9 Nonscarring hair loss, unspecified Office Visit 04/11/2017 4:00p [place] [facility] Ryanncortez Avendano G43.719 Chronic migraine [facility] Of [facility] w/o aura, intractable, w/o stat migr Office Visit 12/13/2016 1:00p [facility] Ryann Avendano G43.719 Chronic migraine [facility] w/o aura, intractable, w/o stat migr G44.40 Drug-induced headache, NEC, not intractable Plan of Treatment Future Appointment(s):03/27/2019 8:45 am - Adelfo Gallagher MD at [facility]02/23/2019 8:15 am - Stan Sandhu M.D. at [place] [facility]02/13/2019 - Adelfo Gallagher, MDM25.511 Pain in right pxqjwjfdT16.101A Unspecified injury of muscle, fascia and tendon of long headNew Therapy:Physical TherapyFollow up:Follow up: 6-8 djejxV57.41 Impingement syndrome of right ybduipvaZ42.211 Secondary osteoarthritis, right shoulder
--- OUTSIDE RECORDS SUMMARY | 2019-02-24 18:33 | XMS REPORT | Continuity of Care Document ---
:1980 External Reference #:[id number] Author Name Fatou Cantu Care Team Providers Name Role Phone Gm Lovett MD Primary Care Physician Unavailable Payers Date Identification Numbers Payment Provider Subscriber Expires: 2016 Policy Number: [id number] [employer] Irene Colmenares PayID: [id number] [address] [address] [place] [address] Policy Number: [id number] Blue [facility] Ppo Irene Colmenares PayID: [id number] [address] [address] [place] [address] Effective: 2018 Policy Number: [id number] [place] Irene Colmenares Onset: 2018 Group Number: fax [phone] [address] [address] PayID: [id number] [place] [address] Problems Active Problems Provider Date Alopecia Ryann Avendano MD Onset: 04/05/2018 Medication overuse headache Ryann Avendano MD Onset: 12/13/2016 Chronic intractable migraine without aura Ryann Avendano MD Onset: 12/13/2016 Family History Date Family Member(s) Observation Comments General Cancer General Rheumatoid Arthritis Mother Migraine First Daughter Migraine Social History Type Date Description Comments Sex Unknown Lives With Spouse Occupation Currently Working Hand Dominance Right-handed ETOH Use Denies alcohol use Tobacco Use Start: Unknown Patient is a current smoker, smokes every day Smoking Status Reviewed: 02/23/19 Patient is a current smoker, smokes every day Exercise Type/Frequency Does not exercise Allergies, Adverse Reactions, Alerts Active Allergies Reaction Severity Comments Date NKDA 12/13/2016 Latex 02/13/2019 Medications Active Medications SIG Qnty Indications Ordering Date Provider Aimovig 140 Dose inject 2 milliliters 12units G43.719 Stan (140mg) Victor M Sandhu 9 70mg/ml Solution subcutaneously every Auto-Inject month Diclofenac Sodium 1 as needed for 30tabs G43.719 Ryann Avendano MD migraine. avoid [address] using more than 2x/week Metoclopramide HCL 1 tablet as needed 30tabs G43.719 Ryann Avendano MD 01/10 for migraine/nausea 8 5mg Tablets up to three times per day. Folic Acid 1 tab a day Unknown 1mg 0 Tablets Arava 1 by mouth every day Unknown 10mg Tablets 0 Linzess 1 by mouth every day Unknown 145mcg 0 Capsules Ibuprofen 200 400-600mg every 6 Unknown 200mg hours as needed for 0 Tablets pain. Tylenol 8 Hour 1 by mouth twice a Unknown 650mg day 0 Tablets ER History Medications Aimovig inject once a 1ml G43.9 Stan Sandhu, 11/10/2018 - 70mg/ml month, sq GRP# M.D. 02/23/2019 Solution [id number] PCN# Auto-Inject CN Id# [id number] Bin# [id number] Naratriptan HCL 1 twice a day as 12tabs G43.719 Ryann Avendano MD 2017 - needed for 11/09/2018 2.5mg Tablets headache max 2 days a week Medrol Take as directed 21units G43.719 Ryann Avendano MD 12/13/2016 - 4mg TBPK 04/11/2017 Topiramate take 1 tabs by 60tabs G43.719 Ryann Avendano MD 12/13/2016 - 25mg mouth every 11/09/2008 Tablets night.. Duloxetine HCL 1 po qd Unknown - 60mg 01/09/[address] Sanchez Alprazolam take 1 tablet by Unknown - 0.25mg mouth three times 01/09/2018 Tablets a day maximum daily dose of 3 Nexium 24HR 1 by mouth daily Unknown - 20mg 11/09/[address] Methotrexate 10mg weekly Unknown - 2.5mg 11/09/2018 Tablets Medications Administered in Office Medication SIG Qnty Indications Ordering Provider Date Triamcinolone (Kenalog) Adelfo Gallagher MD 02/13/2019 Injection Vital Signs Date Vital Result Comment 02/23/2019 8:18am Height 62.5 inches 5'2.50" Weight 119.00 lb Heart Rate 87 /min BP Systolic Sitting 108 mmHg BP Diastolic Sitting 76 mmHg O2 % BldC Oximetry 98 % BMI (Body Mass Index) 21.4 kg/m2 02/13/2019 8:45am Height 62.5 inches 5'2.50" Weight [...] /min BMI (Body Mass Index) 27.0 kg/m2 Procedures Date Code Description Status 02/13/2019 39257 Inject/Drain Joint/Bursa Major W/O US Completed Encounters Type Date Location Provider Dx Diagnosis Office Visit 12/26/2018 [employer] Occup[employer] [place] Calin, S13.4xxD Sprain of 3:31p Health ligaments of cervical spine, subsequent encounter M75.31 Calcific tendinitis of right shoulder M54.12 Radiculopathy, cervical region Z04.2 Encounter for exam and observation following work accident Office 11/10/2018 [facility] Stan G43.719 Chronic migraine Visit 8:00a Services Of [...] hair loss, unspecified Office Visit 04/11/2017 4:00p [facility] Ryann Avendano G43.719 Chronic migraine Services [facility] w/o aura, intractable, w/o stat migr Office Visit 12/13/2016 1:00p [facility] Ryann Avendano G43.719 Chronic migraine [facility] w/o aura, intractable, w/o stat migr G44.40 Drug-induced headache, NEC, not intractable Plan of Treatment Future Appointment(s):06/29/2019 8:15 am - Stan Sandhu M.D. at [place] [facility]03/29/2019 9:15 am - [facility] - Stan Sandhu M.D.G43.719 Chronic migraine without aura, intractable, without status mNew Medication:Aimovig 140 Dose 70 mg /ml - inject 2 milliliters (140mg) subcutaneously every month
[2019-02-24 18:48] VITALS: BP 103/62
--- NOTE | 2019-02-24 19:09 | UC ---
Respiratory Complaint HPI - HPI Summary HPI Summary: 38 yo female with cough x 6 days sore throat no high fever no CP or sob occassionally coughs to the point she thinks she might vomit - History of Current Complaint Chief Complaint: UCGeneralIllness Stated Complaint: SORE THROAT Time Seen by Provider: 02/24/19 18:34 Hx Obtained From: Patient Hx Last Menstrual Period: ablation 9 years ago Onset/Duration: Sudden Onset Timing: Constant Severity Initially: Mild Severity Currently: Moderate Pain Intensity: 4 Pain Scale Used: 0-10 Numeric Character: Cough: Nonproductive Aggravating Factors: Nothing Alleviating Factors: Nothing Associated Signs And Symptoms: Positive: URI, Nasal Congestion Related History: Similar Episode/Dx as: - Bronchitis - Allergies/Home Medications Allergies/Adverse Reactions: Allergies Allergy/AdvReac Type Severity Reaction Status Date / Time latex Allergy Unknown Verified 01/16/19 11:02 Reaction Details PMH/Surg Hx/FS Hx/Imm Hx Previously Healthy: Yes - Surgical History Surgical History: Yes Surgery Procedure, Year, and Place: gallbladder out 2017. 2 c-sections. uterine ablation. 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 LASIK EYE. 09/07/18- [facility] - Family History Known Family History: Positive: Hypertension, Other - positive [facility] for URI - Social History Alcohol Use: None Substance Use Type: None Smoking Status (MU): Light Every Day Tobacco Smoker Type: Cigarettes Amount Used/How Often: 1/2 pack daily Length of Time of Smoking/Using Tobacco: age 17 yo Household Exposure Type: Cigarettes - Immunization History Most Recent Influenza Vaccination: No Review of Systems All Other Systems Reviewed And Are Negative: Yes Constitutional: Positive: Fatigue Skin: Positive: Negative Eyes: Positive: Negative ENT: Positive: Sore Throat Respiratory: Positive: Cough Cardiovascular: Positive: Negative Gastrointestinal: Positive: Negative Genitourinary: Positive: Negative Motor: Positive: Negative Neurovascular: Positive: Negative Musculoskeletal: Positive: Negative Neurological: Positive: Negative Psychological: Positive: Negative Physical Exam Triage Information Reviewed: Yes Appearance: Well-Appearing, No Pain Distress, Well-Nourished Vital Signs: Initial Vital Signs Temp 99.0 F 02/24/19 18:42 Pulse 76 02/24/19 18:42 Resp 18 02/24/19 18:42 BP 103/62 02/24/19 18:42 Pulse Ox 100 02/24/19 18:42 Vital Signs Reviewed: Yes Eyes: Positive: Conjunctiva Clear ENT: Positive: Hearing grossly normal, Pharyngeal erythema, Uvula midline. Negative: Nasal congestion, Nasal drainage, Tonsillar swelling, Tonsillar exudate, Trismus, Muffled voice, Hoarse voice, Sinus tenderness Dental Exam: Normal Neck: Positive: Supple, Nontender, No Lymphadenopathy Respiratory: Positive: Lungs clear, Normal breath sounds, No respiratory distress, No accessory muscle use, Other: - bronchospastic cough Cardiovascular: Positive: RRR Musculoskeletal: Positive: ROM Intact, No Edema Neurological: Positive: Alert Psychological Exam: Normal Skin Exam: Normal Diagnostics - Laboratory Lab Results: strep (-) Respiratory Course/Dx - Differential Dx/Diagnosis Provider Diagnosis: Acute bronchitis Discharge - Sign-Out/Discharge Documenting (check all that apply): Patient Departure All imaging exams completed and their final reports reviewed: No Studies - Discharge Plan Condition: Stable Disposition: HOME Prescriptions: Amoxicillin PO (*) [Amoxicillin 500 MG CAP*] 500 mg PO BID #14 cap predniSONE [Deltasone 20 MG TAB] 40 mg PO DAILY #8 tab Patient Education Materials: Acute Bronchitis (ED) Referrals: Gm Lovett MD [Primary Care Provider] - 4 Days (if not better) - Billing Disposition and Condition Condition: STABLE Disposition: Home
[2019-02-24] MEDS ORDERED: Albuterol HFA INHALER* 8 gm MDI INH ONE (19:15)
[2019-02-24] MEDS ORDERED: Amoxicillin PO (*) 500 MG CAP PO ONE (19:15)
[2019-02-24] MEDS ORDERED: predniSONE TAB* 20 MG PO ONE (19:15)
== END 2019-02-24 19:34 | disposition home or self-care (01) ==
LOC: UCEAST 18:29
DX: J20.9 Acute bronchitis, unspecified (principal); J02.9 Acute pharyngitis, unspecified; Z91.040 Latex allergy status; F17.210 Nicotine dependence, cigarettes, uncomplicated
CPT/HCPCS: 87651; 99213; A9270-GY; G0463; J7512

== ENCOUNTER 2019-09-17 11:40 | Day surgery (SDC) | payer OTHER ==
[~2019-09-17 11:40] MED LIST: Buffered Lidocaine 1% SYRIN* 1 ML/SYRINGE INTRADERM ONE; Famotidine IV* 10 MG/ML 2 ML (20 mg) IV ONE; Lactated Ringers 1000 ML Bag* 1,000 ML IV SCH; Midazolam* 1 MG/ML 5 ML VIAL (5 MG) ONE
[2019-09-17] MEDS ORDERED: Famotidine IV* 10 MG/ML 2 ML (20 mg) ONE (11:52)
[2019-09-17] MEDS ORDERED: ceFAZolin 2 GM PREMIX in ORs 2 GM/50 ML BAG ONE (11:52)
[2019-09-17] MEDS ORDERED: Lidocaine 1% MPF ** 5 ML VIAL ONE (13:09)
[2019-09-17] MEDS ORDERED: ROPIVACAINE 5 MG/ML 30 ML BTL (0.5%) ONE (13:09)
[2019-09-17] MEDS ORDERED: HYDROmorphone INJ1* 1 MG/ML SYRINGE IV PRN (13:15)
[2019-09-17] MEDS ORDERED: DiMENhydriNATE IV* 50 MG/ML VIAL IV PUSH PRN (13:15)
[2019-09-17] MEDS ORDERED: Naloxone* 0.4 MG/ML 1 ML VIAL IV PRN (13:15)
[2019-09-17] MEDS ORDERED: HYDROcodone/ACETAMIN 5-325 MG* 1 TAB PO PRN (13:15)
[2019-09-17] MEDS ORDERED: fentaNYL* 50 MCG/ML 2 ML VIAL (100 MCG VIAL) ONE (13:58)
[2019-09-17] MEDS ORDERED: Succinylcholine* 20 MG/ML 10 ML VIAL ONE (14:03)
[2019-09-17] MEDS ORDERED: Lidocaine 2% PF * 5 ML VIAL ONE (14:03)
[2019-09-17] MEDS ORDERED: Ketorolac INJ* 30 MG/ML 1 ML VIAL ONE (14:03)
[2019-09-17] MEDS ORDERED: Propofol* 10 MG/ML 20 ML BTL ONE (14:03)
[2019-09-17] MEDS ORDERED: Ondansetron INJ* 2 MG/ML VIAL ONE (14:03)
[2019-09-17] MEDS ORDERED: Dexamethasone IV* 4 MG/ML 1 ML (4 MG) ONE (14:03)
[2019-09-17] MEDS ORDERED: methylPREDNISolone ACETATE 80* 80 MG/ML 1 ML VIAL ONE (14:34)
[2019-09-17] MEDS ORDERED: DiMENhydriNATE IV* 50 MG/ML VIAL ONE (15:05)
[2019-09-17 16:03] VITALS: BP 105/62
--- NOTE | 2019-09-18 12:06 | OP ---
DATE OF OPERATION: 09/17/19 - [facility] DATE OF : 84 SURGEON: Adelfo Gallagher MD. CIGAR ROLLER: AVELINO Blake. An video production assistant was needed for the entirety of the case to help with positioning, retraction, and utilized throughout all portion of the case. ANESTHESIOLOGIST: Dr. Jeffers. ANESTHESIA: General, interscalene block. PRE-OP DIAGNOSIS: Right shoulder acromioclavicular joint arthritis and impingement with possible bicipital tendinitis. POST-OP DIAGNOSIS: Acromioclavicular joint arthritis and impingement and partial tearing of the rotator cuff. OPERATIVE PROCEDURE: Right shoulder arthroscopy with: 1. Extensive glenohumeral debridement including debridement of the rotator cuff. 2. Subacromial decompression with acromioplasty. 3. Distal clavicle excision. 4. Subacromial injection with 80 mg of Depo-Medrol. COMPLICATIONS: None. ESTIMATED BLOOD LOSS: Minimal. INDICATIONS: Irene Colmenares is a 39-year-old female who had a work-related injury. She has failed conservative management including physical therapy, antiinflammatories, ice, heat, and injections. She has elected to proceed with surgical treatment. Risks included but not limited to bleeding, infection, damage to nerves, vessels, surrounding structures, wound nonhealing, persistent pain, need for further surgery, scarring, stiffness, incomplete relief of symptoms and risks of anesthesia. DESCRIPTION OF PROCEDURE: The patient was greeted in the preoperative area by the attending surgeon. Correct extremity was marked and consent was confirmed. The patient underwent interscalene nerve block, after which she was brought back to the operating suite, was placed in the supine position on the operating table. She underwent general anesthesia with endotracheal intubation, after which she was placed in the left lateral decubitus position. All bony prominences were padded. The right shoulder was then draped unsterile with 10 pounds of traction. The right shoulder was then prepped and draped in the usual sterile fashion, beginning with chlorhexidine soap, scrub, and alcohol wipe and final prep of ChloraPrep. After appropriate surgical pause indicating the side, site, procedure, and administration of antibiotics, the standard posterolateral portal was made sharply with an 11 blade. The scope was introduced into the joint and the joint was examined. The glenohumeral joint had grade 0 to 1 changes. The undersurface of the subscap had some partial tearing. The anterior portal was made in an outside- in fashion. Janette were used to debride back some of the anterior and posterior labrum which was otherwise grossly intact. Superior labrum was intact. The biceps looks good. The undersurface of the subscap was then debrided back using a shaver. The undersurface of the supraspinatus was intact with no fraying. The inferior recess was intact. Once the intraarticular work was completed, attention was directed to the subacromial space. With the scope positioned in the subacromial space, a lateral portal was made in an outside-in fashion. Shaver was used to debride back the abundant bursa that was present. The rotator cuff was okay. There were no bursal side of tearing. The undersurface of the acromion was skeletonized using electrocautery device. A 4-0 oval bur was the used to do a acromioplasty, removed this bur and C ligament peeled back. Attention was directed to the AC joint. With the bur brought to the anterior portal, the lateral 8 mm of the clavicle was then debrided back using the bur with care to prevent damage to the CC ligament. After this was completed, the final images were obtained, the wound was copiously irrigated and the debris was removed from the joint. An 18-gauge needle was placed subacromially under arthroscopic visualization and then I injected with 80 mg of Depo-Medrol. Sterile dressings were applied. A Cryo/ Cuff and regular sling and portals were closed using 3-0 nylon and sterile dressing. She was awoken from anesthesia and transferred to PACU in stable condition. POSTOPERATIVE PLAN: She will be nonweightbearing. She will do range of motion as tolerated. Wean off the sling in 2 to 3 days. Discharged on pain medications. DVT prophylaxis was considered but deferred due to no previous personal or family history. I will see the patient back in 10 to 14 days. [id number]/[facility] #: [id number] FELIPE
== END 2019-09-17 16:24 | disposition home or self-care (01) ==
LOC: OREAST 11:40
PROVIDERS: ATTEND Orthopaedic Surgery
DX: M75.41 Impingement syndrome of right shoulder (principal); M19.211 Secondary osteoarthritis, right shoulder; M75.21 Bicipital tendinitis, right shoulder; G89.18 Other acute postprocedural pain; F17.210 Nicotine dependence, cigarettes, uncomplicated
CPT/HCPCS: J0330; J0690; J1040; J1100; J1240; J1885; J2250; J2405; J2704; J2795; J3010